=== PATIENT | male | born 1955 | race Caucasian/White ===

== ENCOUNTER 2018-09-20 14:27 | Emergency (ER) | payer BC ==
[~2018-09-20] VITALS: Ht 177.8 cm; Wt 88.6 kg
[2018-09-20] MEDS ORDERED: diltiazem 5mg/ml 5ml inj. IV ONE (14:50)
[2018-09-20] MEDS ORDERED: aspirin 81mg tab.chew PO ONE (14:50)
[2018-09-20] MEDS ORDERED: diltiazem 30mg tablet PO ONE (15:00)
[2018-09-20 15:18] LABS: BASOPHILS # (AUTO) 0.1 X10'3 (0-0.2); BASOPHILS % (AUTO) 1.3 % (0-1); EOSINOPHILS # (AUTO) 0.1 X10'3 (0-0.9); EOSINOPHILS % (AUTO) 0.8 % (0-6); HEMATOCRIT 49.8 % (42.0-52.0); HEMOGLOBIN 16.7 g/dl (14.0-17.9); LYMPHOCYTES # (AUTO) 1.7 X10'3 (1.1-4.8); LYMPHOCYTES % (AUTO) 25.7 % (21-51); MEAN CORPUSCULAR HEMOGLOBIN 34.1 PG (27.0-31.0); MEAN CORPUSCULAR HGB CONC 33.6 g/dL (33.0-36.5); MEAN CORPUSCULAR VOLUME 101.4 FL (78-98); MEAN PLATELET VOLUME 8.3 FL (7.4-10.4); MONOCYTES # (AUTO) 0.6 X10'3 (0-0.9); MONOCYTES % (AUTO) 9.7 % (2-12); NEUTROPHILS # (AUTO) 4.1 X10'3 (1.8-7.7); NEUTROPHILS % (AUTO) 62.5 % (42-75); PLATELET COUNT 185 X10'3 (140-440); RED BLOOD COUNT 4.91 X10'6 (4.70-6.10); RED CELL DISTRIBUTION WIDTH 14.4 % (11.5-14.5); WHITE BLOOD COUNT 6.5 X10'3 (4.5-11.0)
[2018-09-20 15:28] LABS: PARTIAL THROMBOPLASTIN TIME 31 SECONDS (22-32)
[2018-09-20 15:30] LABS: ALANINE AMINOTRANSFERASE 77 U/L (12-78); ALBUMIN 3.6 G/DL (3.4-5.0); ALKALINE PHOSPHATASE 117 IU/L (46-116); ANION GAP 12 (8-16); ASPARTATE AMINO TRANSFERASE 44 U/L (10-37); BILIRUBIN,TOTAL 1.2 MG/DL (0.1-1.0); BLOOD UREA NITROGEN 24 MG/DL (7-18); CALCIUM 8.8 MG/DL (8.5-10.1); CHLORIDE 104 MMOL/L (99-107); CREATININE 1.26 MG/DL (0.60-1.10); GLUCOSE 131 MG/DL (70-104); POTASSIUM 4.6 MMOL/L (3.5-5.1); SODIUM 137 MMOL/L (135-145); TOTAL CARBON DIOXIDE 21.3 MMOL/L (24-32); TOTAL PROTEIN 7.1 G/DL (6.4-8.2); eGFR 58 ML/MIN
[2018-09-20 15:37] LABS: MAGNESIUM 2.1 MG/DL (1.5-2.4)
[2018-09-20] MEDS ORDERED: normal saline 1000ML IV soln IVB ONE ×2 (15:45→15:50)
[2018-09-20] MEDS ORDERED: enoxaparin 100mg/ml syringe SUBCUT ONE (15:45)
--- NOTE | 2018-09-20 20:20 | NUR ---
Pt gait tested with O2 monitoring to aid cyndy Echols with additional data r/t pt disposition. Pt walked 124ft while maintaining HR and O2 above 94% on RA. Pt denies increased SOB, dizziness or any distress with gait test. CYNDY Echols notified of results.
[2018-09-20] MEDS ORDERED: ASPI-1264 PO (21:13)
[2018-09-20] MEDS ORDERED: DILT180C95 PO (21:13)
[2018-09-20 21:23] VITALS: BP 123/88
== END 2018-09-20 21:31 | disposition home or self-care (01) ==
LOC: ER 14:28
DX: I48.91 Unspecified atrial fibrillation (principal); I50.9 Heart failure, unspecified; R60.0 Localized edema; Z79.82 Long term (current) use of aspirin; Z79.899 Other long term (current) drug therapy
CPT/HCPCS: 36415; 71045; 80053; 83735; 83880; 84484; 85025; 85610; 85730; 93005; 96372; 96374; 99284; J1650; J3490

== ENCOUNTER 2018-10-30 05:45 | Day surgery (SDC) | payer BC ==
[2018-10-29 11:20] LABS: BASOPHILS # (AUTO) 0.1 X10'3 (0-0.2); BASOPHILS % (AUTO) 1.2 % (0-1); EOSINOPHILS # (AUTO) 0.2 X10'3 (0-0.9); EOSINOPHILS % (AUTO) 4.2 % (0-6); HEMATOCRIT 46.8 % (42.0-52.0); HEMOGLOBIN 15.7 g/dl (14.0-17.9); LYMPHOCYTES # (AUTO) 1.1 X10'3 (1.1-4.8); LYMPHOCYTES % (AUTO) 20.3 % (21-51); MEAN CORPUSCULAR HEMOGLOBIN 32.9 PG (27.0-31.0); MEAN CORPUSCULAR HGB CONC 33.5 g/dL (33.0-36.5); MEAN CORPUSCULAR VOLUME 98.4 FL (78-98); MEAN PLATELET VOLUME 7.5 FL (7.4-10.4); MONOCYTES # (AUTO) 0.5 X10'3 (0-0.9); NEUTROPHILS # (AUTO) 3.7 X10'3 (1.8-7.7); NEUTROPHILS % (AUTO) 65.3 % (42-75); PLATELET COUNT 171 X10'3 (140-440); RED BLOOD COUNT 4.76 X10'6 (4.70-6.10); RED CELL DISTRIBUTION WIDTH 13.6 % (11.5-14.5); WHITE BLOOD COUNT 5.6 X10'3 (4.5-11.0)
[2018-10-29 11:31] LABS: ALBUMIN 3.8 G/DL (3.4-5.0); ANION GAP 10 (8-16); BLOOD UREA NITROGEN 33 MG/DL (7-18); BUN/CREATININE RATIO 24.4 (5.4-32.0); CALCIUM 8.5 MG/DL (8.5-10.1); CHLORIDE 105 MMOL/L (99-107); CREATININE 1.35 MG/DL (0.60-1.10); GLUCOSE 118 MG/DL (70-104); POTASSIUM 4.3 MMOL/L (3.5-5.1); SODIUM 142 MMOL/L (135-145); TOTAL CARBON DIOXIDE 27.5 MMOL/L (24-32); eGFR 54 ML/MIN
[~2018-10-30] VITALS: Ht 177.8 cm; Wt 85.1 kg
[2018-10-30] VITALS (10 sets, daily range): BP systolic 107–132; BP diastolic 72–98
[~2018-10-30 05:45] MED LIST: ACET200V24 PO; AMIO200T61 PO; APIX5TAB3 PO; DILT-36 PO; FURO20TA4 PO
[2018-10-30] MEDS ORDERED: atropine 0.1mg/ml 10ml syringe IV ONE (06:00)
[2018-10-30] MEDS ORDERED: normal saline 1,000 ML IV SCH (06:00)
[2018-10-30] MEDS ORDERED: amiodarone 150mg/dext, iso-os 100 ML IV ONE (06:00)
[2018-10-30] MEDS ORDERED: morphine 10mg/ml inj. IV ONE (06:00)
[2018-10-30] MEDS ORDERED: diphenhydrAMINE 25mg capsule PO PRN (06:00)
[2018-10-30] MEDS ORDERED: MIDAZolam 1mg/ml 10ml vial IV ONE (06:00)
[2018-10-30] MEDS ORDERED: LORazepam 0.5 MG tablet PO PRN (06:00)
[2018-10-30] MEDS ORDERED: CARV-50 PO (07:17)
== END 2018-10-30 10:40 | disposition home or self-care (01) ==
LOC: SSTAY O 05:45
PROVIDERS: ATTEND Internal Medicine Cardiovascular Disease
DX: I48.1 Persistent atrial fibrillation (principal); I25.10 Atherosclerotic heart disease of native coronary artery without angina pectoris; I42.0 Dilated cardiomyopathy; I50.22 Chronic systolic (congestive) heart failure; I48.0 Paroxysmal atrial fibrillation; J45.909 Unspecified asthma, uncomplicated; Z72.89 Other problems related to lifestyle; Z88.8 Allergy status to other drugs, medicaments and biological substances; Z79.899 Other long term (current) drug therapy
CPT/HCPCS: 36415; 80048; 85025; 85610; 92960; 93005; J0282; J0461; J2250; J2270; J7030; Q0163

== ENCOUNTER 2018-12-24 11:35 | Outpatient (CLI) | payer BC ==
[~2018-12-24 11:35] MED LIST changes: -ACET200V24 PO; +CARV-50 PO; -DILT-36 PO; -FURO20TA4 PO
== END 2018-12-24 23:59 | disposition home or self-care (01) ==
LOC: CARD DIAG 11:35
PROVIDERS: ATTEND Internal Medicine Cardiovascular Disease
DX: I08.8 Other rheumatic multiple valve diseases (principal); I11.0 Hypertensive heart disease with heart failure; I50.30 Unspecified diastolic (congestive) heart failure; I42.0 Dilated cardiomyopathy; J45.909 Unspecified asthma, uncomplicated; Z72.89 Other problems related to lifestyle
CPT/HCPCS: 93306

== ENCOUNTER 2020-02-03 07:19 | Day surgery (SDC) | payer BC ==
[2020-02-02 09:56] LABS: BASOPHILS # (AUTO) 0.1 X10'3 (0-0.2); BASOPHILS % (AUTO) 1.1 % (0-1); EOSINOPHILS # (AUTO) 0.3 X10'3 (0-0.9); HEMATOCRIT 46.3 % (42.0-52.0); HEMOGLOBIN 15.7 g/dl (14.0-17.9); LYMPHOCYTES # (AUTO) 1.5 X10'3 (1.1-4.8); LYMPHOCYTES % (AUTO) 28.8 % (21-51); MEAN CORPUSCULAR HEMOGLOBIN 32.4 PG (27.0-31.0); MEAN CORPUSCULAR VOLUME 95.4 FL (78-98); MEAN PLATELET VOLUME 7.5 FL (7.4-10.4); MONOCYTES # (AUTO) 0.4 X10'3 (0-0.9); MONOCYTES % (AUTO) 8.6 % (2-12); NEUTROPHILS # (AUTO) 2.9 X10'3 (1.8-7.7); NEUTROPHILS % (AUTO) 56.5 % (42-75); PLATELET COUNT 210 X10'3 (140-440); RED BLOOD COUNT 4.85 X10'6 (4.70-6.10); RED CELL DISTRIBUTION WIDTH 13.2 % (11.5-14.5); WHITE BLOOD COUNT 5.1 X10'3 (4.5-11.0)
[2020-02-02 10:03] LABS: ALBUMIN 3.7 G/DL (3.4-5.0); ANION GAP 6 (8-16); BLOOD UREA NITROGEN 17 MG/DL (7-18); BUN/CREATININE RATIO 15.2 (5.4-32.0); CALCIUM 8.6 MG/DL (8.5-10.1); CHLORIDE 109 MMOL/L (99-107); CREATININE 1.12 MG/DL (0.60-1.10); GLUCOSE 109 MG/DL (70-104); POTASSIUM 4.1 MMOL/L (3.5-5.1); SODIUM 143 MMOL/L (135-145); TOTAL CARBON DIOXIDE 27.7 MMOL/L (24-32); eGFR 66 ML/MIN
[~2020-02-03] VITALS: Ht 177.8 cm; Wt 87.9 kg
[2020-02-03] VITALS (16 sets, daily range): BP systolic 111–148; BP diastolic 73–93
[2020-02-03] MEDS ORDERED: amiodarone 150mg/dext, iso-os 100 ML IV ONE (07:40)
[2020-02-03] MEDS ORDERED: MIDAZolam 1mg/ml 10ml vial IV ONE (07:40)
[2020-02-03] MEDS ORDERED: LORazepam 0.5 MG tablet PO ONE (07:40)
[2020-02-03] MEDS ORDERED: atropine 0.1mg/ml 10ml syringe IV ONE (07:40)
[2020-02-03] MEDS ORDERED: diphenhydrAMINE 25mg capsule PO ONE (07:40)
[2020-02-03] MEDS ORDERED: normal saline 1000ml 1,000 ML IV SCH (07:40)
[2020-02-03] MEDS ORDERED: morphine 10mg/ml inj. IV ONE (07:40)
[2020-02-03] MEDS ORDERED: FLEC100T (08:08)
== END 2020-02-03 11:50 | disposition home or self-care (01) ==
LOC: SSTAY O 07:19
PROVIDERS: ATTEND Internal Medicine Cardiovascular Disease
DX: I48.0 Paroxysmal atrial fibrillation (principal); I25.10 Atherosclerotic heart disease of native coronary artery without angina pectoris; J45.909 Unspecified asthma, uncomplicated; I42.0 Dilated cardiomyopathy; I50.22 Chronic systolic (congestive) heart failure; I34.0 Nonrheumatic mitral (valve) insufficiency; Z79.01 Long term (current) use of anticoagulants; Z79.899 Other long term (current) drug therapy
CPT/HCPCS: 36415; 80048; 85025; 85610; 92960; 93005; J2250; J2270; J7030; Q0163